=== PATIENT | male | born 1955 | race African-American/Black ===

== ENCOUNTER 2019-05-02 20:23 | Emergency (ER) | payer OTHER ==
[~2019-05-02] VITALS: Ht 193 cm; Wt 70.9 kg
[~2019-05-02 20:23] MED LIST: AMLODIPINE; ATORVASTATIN PO; BENAZEPRIL PO; HYDR-4011 PO; IBUP-1542 PO; LOPE2CAP PO; [UNRECOGNIZED DRUG - REMARK]
[2019-05-02 20:27] VITALS: Ht 193 cm; Wt 70.9 kg
[2019-05-03] MEDS ORDERED: SOD CHLORIDE 0.9% 100 ML ONE (00:14)
[2019-05-03] MEDS ORDERED: IOHEXOL 300MG/ML 150 ML BTL ONE (00:14)
[2019-05-03] MEDS ORDERED: SOD CHLORIDE 0.9% 1,000 ML IV ONE (00:30)
[2019-05-03] MEDS ORDERED: POLYMYXIN/TRIMETHOPRIM 10 ML OPH BOTH EYES ONE (01:30)
[2019-05-03 03:20] VITALS: BP 159/87; PULSE 100; RESP 18
== END 2019-05-03 03:20 | disposition home or self-care (01) ==
LOC: FTE 20:23
DX: J43.2 Centrilobular emphysema (principal); I10 Essential (primary) hypertension; I70.90 Unspecified atherosclerosis; I89.8 Other specified noninfective disorders of lymphatic vessels and lymph nodes; I71.2 Thoracic aortic aneurysm, without rupture; I51.7 Cardiomegaly; K80.20 Calculus of gallbladder without cholecystitis without obstruction; Q44.5 Other congenital malformations of bile ducts; M51.34 Other intervertebral disc degeneration, thoracic region; Z87.891 Personal history of nicotine dependence
CPT/HCPCS: 70491; 71045; 71260; 74177; 80053; 81003; 83690; 85025; 96360; J7030; Q9967; Z7502; Z7610